=== PATIENT | female | born 1960 | race Caucasian/White ===

== ENCOUNTER 2023-05-05 05:54 | Observation (INO) ==
[2023-05-05] MEDS ORDERED: Buffered Lidocaine 1% SYRIN 1 ml INTRADERM ONE (06:00)
[2023-05-05] MEDS ORDERED: Lactated Ringers 1000 ml BAG 1,000 ML IV SCH (06:00)
[2023-05-05] MEDS ORDERED: ceFAZolin 2 GM PREMIX 2 GM/50 ML BAG ONE (06:21)
[2023-05-05] MEDS ORDERED: Heparin 5000 UNITS/ML 1 mL VIAL ONE (06:21)
[2023-05-05] MEDS ORDERED: Buffered Lidocaine 1% SYRIN 1 ml ONE (06:21)
[2023-05-05] MEDS ORDERED: Propofol 10 MG/ML 20 ML BTL ONE (07:00)
[2023-05-05] MEDS ORDERED: Lidocaine 2% PF 5 ML VIAL ONE (07:00)
[2023-05-05] MEDS ORDERED: Rocuronium 50 mg VIAL 10 mg/ml 5 ml VIAL (50 mg) ONE (07:04)
[2023-05-05] MEDS ORDERED: fentaNYL 250 mcg/5 ml 50 MCG/ML 5 ml VIAL (250 MCG) ONE (07:04)
[2023-05-05] MEDS ORDERED: Bupivacaine 0.5% SDV PF 30ML VIAL ONE ×2 (07:05→10:37)
[2023-05-05] MEDS ORDERED: Midazolam 2 mg/2 ml VIAL 1 mg/ml 2 ml VIAL (2 mg) ONE (07:30)
[2023-05-05] MEDS ORDERED: HYDROmorphone 0.5 MG/0.5 ML SYRINGE ONE ×2 (07:59→08:18)
[2023-05-05] MEDS ORDERED: Dexamethasone IV 4 MG/ML VIAL 1 ml VIAL ONE (08:18)
[2023-05-05] MEDS ORDERED: Ondansetron 4 mg VIAL 2 MG/ML 2 ml VIAL ONE (08:18)
[2023-05-05] MEDS ORDERED: Phenylephrine IV 10 MG/ML 1 ml VIAL ONE (08:31)
[2023-05-05] MEDS ORDERED: Glycopyrrolate IV 0.2 MG/ML 1 ML VIAL ONE (09:27)
[2023-05-05] MEDS ORDERED: Acetaminophen IV 1 GM/100ML 1,000 MG/100 ML BAG IV ONE (09:50)
[2023-05-05] MEDS ORDERED: ceFAZolin VIAL VIAL ONE (10:09)
[2023-05-05] MEDS ORDERED: Scopolamine 1 mg/72hr PATCH ONE (14:18)
[2023-05-05] MEDS ORDERED: Morphine 2 MG/ML SYRINGE IV PRN (14:36)
[2023-05-05] MEDS ORDERED: fentaNYL 100 mcg/2 ml 50 MCG/ML VIAL IV PRN (15:08)
[2023-05-05] MEDS ORDERED: HYDROmorphone 1 MG/1 ML SYRINGE IV PRN (15:08)
[2023-05-05] MEDS ORDERED: Naloxone 0.4 mg VIAL 0.4 mg/ml 1 ml VIAL IV PRN (15:08)
[2023-05-05] MEDS ORDERED: fentaNYL 100 mcg/2 ml 50 MCG/ML VIAL ONE (15:09)
[2023-05-05 15:37] LABS: Rapid COVID-19 Molecular Undetected (Undetected)
[2023-05-05] MEDS: Benzocaine/Menthol LOZ PO PRN ×2 (17:07→21:20)
[2023-05-05] MEDS: HYDROcodone/ACETAMIN 5/325 mg TAB PO PRN ×2 (18:00→23:05)
[2023-05-05] MEDS ORDERED: AZELAIC ACID 15% TOPICAL SCH (21:00)
[2023-05-05] MEDS: ceFAZolin 2 GM in NS PREMIX 2 GM/100 ML BAG IVPB SCH (21:20)
[2023-05-05] MEDS: Heparin 5000 UNITS/ML 1 mL VIAL SUBCUT SCH (21:26)
[2023-05-06] MEDS: ceFAZolin 2 GM in NS PREMIX 2 GM/100 ML BAG IVPB SCH ×2 (04:54→12:14)
[2023-05-06] MEDS: Heparin 5000 UNITS/ML 1 mL VIAL SUBCUT SCH (05:43)
[2023-05-06] MEDS: Benzocaine/Menthol LOZ PO PRN (06:35)
[2023-05-06] MEDS: HYDROcodone/ACETAMIN 5/325 mg TAB PO PRN ×2 (08:44→13:02)
[2023-05-06] MEDS ORDERED: MOMETASONE INTRANASAL SCH (09:00)
[2023-05-06 11:01] VITALS: BP 132/72
== END 2023-05-06 13:45 | disposition home or self-care (01) ==
LOC: OR 05:54 → EDSTATUS 07:30 → SSU 16:45 → INTOOBSV 16:45
PROVIDERS: ADMIT Student in an Organized Health Care Education/Training Program; ATTEND Student in an Organized Health Care Education/Training Program